=== PATIENT | male | born 1985 | race Caucasian/White ===

== ENCOUNTER 2021-06-08 22:11 | Emergency (ER) | payer SELFPAY ==
[2021-06-08] MEDS ORDERED: ONDANSETRON 4 MG/2 ML VIAL ONE (23:31)
[2021-06-08] MEDS ORDERED: MORPHINE 4 MG/ML SYR ONE (23:31)
[2021-06-09] MEDS ORDERED: ONDANSETRON 4 MG/2 ML VIAL ONE (00:44)
[2021-06-09] MEDS ORDERED: MORPHINE 4 MG/ML SYR ONE (00:44)
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
[2021-06-09] MEDS ORDERED: FENTANYL CITR 100 MCG/2 ML ONE (02:01)
[2021-06-09 02:39] VITALS: TEMP 99.3
[2021-06-09 02:43] VITALS: BP 141/85; O2SAT 100
--- NOTE | 2021-06-09 13:23 | RAD REPORT ---
EXAM DESCRIPTION: RAD - Forearm Left - 06/09/2021 12:05 am ADDENDUM #1 Image including the left humeral head/neck is provided. Left humerus appears unremarkable. No evidenc e of an acute fracture involving the left humerus. No dislocation. Left lung appears clear. Surrounding soft tissues are unremarkable. Electronically signed by: Joaquin Pinon MD 06/09/2021 3:02 AM [employer]TER [employer] End of Addendum EXAM DESCRIPTION: Forearm Left (accession [id number]), Hand Left 3 View (accession [id number]) , Humerus Left (accession [id number]) CLINICAL HISTORY: 36 years Male, PAIN COMPARISON: None. FINDINGS: Left humeral head/neck is not included on images provided. There is an acute, mildly displaced fracture extending transversely through the diaphysis of the fift h distal phalanx with mild comminution and mild associated soft tissue swelling. There is an acute, mildly comminuted, intra-articular fracture of the olecranon with fracture line in volving the proximal ulnar metaphysis. No dislocation. Soft tissue swelling near the proximal ulnar fracture noted. Elbow joint effusion is present. IMPRESSION: 1. Acute fracture of the fifth distal phalanx of the left hand. 2. Acute, intra-articular fracture involving the left olecranon/proximal ulnar metaphysis. 3. Left humeral head/neck not included on images provided. Electronically signed by: Joaquin Pinon MD 06/09/2021 12:20 AM [employer]HTER [employer]PORT Due to temporary technical issues with the PACS/Fluency reporting system, reports are being signed by the in house radiologist without review as a courtesy to ensure prompt reporting. The interpreting r adiologist is fully responsible for the content of the report.
--- NOTE | 2021-06-09 13:24 | RAD REPORT ---
EXAM DESCRIPTION: RAD - Humerus Left - 06/09/2021 12:05 am ADDENDUM #1 Image including the left humeral head/neck is provided. Left humerus appears unremarkable. No evidenc e of an acute fracture involving the left humerus. No dislocation. Left lung appears clear. Surrounding soft tissues are unremarkable. Electronically signed by: Joaquin Pinon MD 06/09/2021 3:02 AM RESERVATION SALES AGENT End of Addendum EXAM DESCRIPTION: Forearm Left (accession [id number]), Hand Left 3 View (accession [id number]) , Humerus Left (accession [id number]) CLINICAL HISTORY: 36 years Male, PAIN COMPARISON: None. FINDINGS: Left humeral head/neck is not included on images provided. There is an acute, mildly displaced fracture extending transversely through the diaphysis of the fift h distal phalanx with mild comminution and mild associated soft tissue swelling. There is an acute, mildly comminuted, intra-articular fracture of the olecranon with fracture line in volving the proximal ulnar metaphysis. No dislocation. Soft tissue swelling near the proximal ulnar fracture noted. Elbow joint effusion is present. IMPRESSION: 1. Acute fracture of the fifth distal phalanx of the left hand. 2. Acute, intra-articular fracture involving the left olecranon/proximal ulnar metaphysis. 3. Left humeral head/neck not included on images provided. Electronically signed by: Joaquin Pinon MD 06/09/2021 12:20 AM RESERVATION SALES AGENT Due to temporary technical issues with the PACS/Fluency reporting system, reports are being signed by the in house radiologist without review as a courtesy to ensure prompt reporting. The interpreting r adiologist is fully responsible for the content of the report.
--- NOTE | 2021-06-09 13:51 | RAD REPORT ---
EXAM DESCRIPTION: RAD - Hand Left 3 View - 06/09/2021 12:05 am ADDENDUM #1 Image including the left humeral head/neck is provided. Left humerus appears unremarkable. No evidenc e of an acute fracture involving the left humerus. No dislocation. Left lung appears clear. Surrounding soft tissues are unremarkable. Electronically signed by: Joaquin Pinon MD 06/09/2021 3:02 AM HOME ASSESSMENT NURSE End of Addendum EXAM DESCRIPTION: Forearm Left (accession [id number]), Hand Left 3 View (accession [id number]) , Humerus Left (accession [id number]) CLINICAL HISTORY: 36 years Male, PAIN COMPARISON: None. FINDINGS: Left humeral head/neck is not included on images provided. There is an acute, mildly displaced fracture extending transversely through the diaphysis of the fift h distal phalanx with mild comminution and mild associated soft tissue swelling. There is an acute, mildly comminuted, intra-articular fracture of the olecranon with fracture line in volving the proximal ulnar metaphysis. No dislocation. Soft tissue swelling near the proximal ulnar fracture noted. Elbow joint effusion is present. IMPRESSION: 1. Acute fracture of the fifth distal phalanx of the left hand. 2. Acute, intra-articular fracture involving the left olecranon/proximal ulnar metaphysis. 3. Left humeral head/neck not included on images provided. Electronically signed by: Joaquin Pinon MD 06/09/2021 12:20 AM HOME ASSESSMENT NURSE Due to temporary technical issues with the PACS/Fluency reporting system, reports are being signed by the in house radiologist without review as a courtesy to ensure prompt reporting. The interpreting r adiologist is fully responsible for the content of the report.
== END 2021-06-09 02:33 | disposition short-term general hospital (02) ==
LOC: ER 22:11
DX: S62.637A Displaced fracture of distal phalanx of left little finger, initial encounter for closed fracture (principal); S52.032A Displaced fracture of olecranon process with intraarticular extension of left ulna, initial encounter for closed fracture; V27.0XXA Motorcycle driver injured in collision with fixed or stationary object in nontraffic accident, initial encounter; Z20.822 Contact with and (suspected) exposure to COVID-19
CPT/HCPCS: 96374; 96375; 99285; J2405; J3010; U0003